=== PATIENT | male | born 1965 | race Caucasian/White ===

== ENCOUNTER 2023-09-30 16:19 | Emergency (ER) | payer OTHER ==
[~2023-09-30] VITALS: Ht 180.3 cm; Wt 145.1 kg
[2023-09-30] MEDS ORDERED: LIDOCAINE HCL 1% 20 ML VIAL ONE (17:32)
[2023-09-30] MEDS: LIDOCAINE HCL 1% 20 ML VIAL IJ ONE (17:37)
[2023-09-30 18:41] VITALS: BP 145/88; TEMP 98.3; O2SAT 97
== END 2023-09-30 18:42 | disposition home or self-care (01) ==
LOC: ER 16:21
DX: M96.831 Postprocedural hemorrhage of a musculoskeletal structure following other procedure (principal); E78.5 Hyperlipidemia, unspecified; E11.9 Type 2 diabetes mellitus without complications
CPT/HCPCS: 99282; J3490; A4606; A4663